=== PATIENT | male | born 1955 | race Caucasian/White ===

== ENCOUNTER 2017-09-17 09:53 | Day surgery (SDC) | payer BC ==
[~2017-09-17 09:53] MED LIST: NS 500 ML IV 500 ML IV ONE
[2017-09-17] MEDS ORDERED: TETRACAINE 0.5% OPHTH 1 DOSE AFFEYE ONE ×4 (10:15→14:05)
[2017-09-17] MEDS ORDERED: VIGAMOX 0.5% OPHTH 1 DOSE AFFEYE ONE ×5 (10:16→14:19)
[2017-09-17] MEDS ORDERED: PROLENSA OPHTH 1 DOSE AFFEYE ONE (10:27)
[2017-09-17] MEDS ORDERED: ALPHAGAN-P OPHTH 1 DOSE AFFEYE ONE (10:28)
[2017-09-17] MEDS ORDERED: CYCLOGYL 1% OPHTH 1 DOSE OP ONE ×3 (10:29→10:35)
[2017-09-17] MEDS ORDERED: AK-DILATE 2.5% OPHTH 1 DOSE OP ONE ×3 (10:30→10:36)
[2017-09-17] MEDS ORDERED: MYDRIACIL OPHTH 1 DOSE AFFEYE ONE ×3 (10:31→10:37)
[2017-09-17] MEDS ORDERED: VERSED ONE (13:42)
[2017-09-17] MEDS ORDERED: BETADINE OPHTH SOLN 5% EACHEYE ONE (14:00)
[2017-09-17] MEDS ORDERED: XYLOCAINE-MPF 1% IJ ONE ×2 (14:03→14:05)
[2017-09-17] MEDS ORDERED: ADRENALINE CHL INJ IJ ONE ×2 (14:03→14:05)
[2017-09-17] MEDS ORDERED: DUOVISC IO ONE ×2 (14:03→14:05)
[2017-09-17] MEDS ORDERED: BSS OPHTH (PLAIN) 500 ML with VANCOMYCIN HCL 500 MG VIAL 25 MG, ADRENALINE CHL INJ 1 MG IR ONE ×3 (14:03)
[2017-09-17 16:21] VITALS: BP 136/92
== END 2017-09-17 14:45 | disposition home or self-care (01) ==
LOC: SURG1 09:53 → EDBD 19:15
PROVIDERS: ATTEND Ophthalmology
PROC: 08DK3ZZ Extraction of Left Lens, Percutaneous Approach (ICD-10-PCS; principal; 2017-09-17 19:15)
PROC: 08RK3JZ Replacement of Left Lens with Synthetic Substitute, Percutaneous Approach (ICD-10-PCS; principal; 2017-09-17 19:15)
DX: H25.12 Age-related nuclear cataract, left eye (principal); H25.042 Posterior subcapsular polar age-related cataract, left eye
CPT/HCPCS: A4217; J0170; J2250; J3370